=== PATIENT | male | born 1955 | race Caucasian/White ===

== ENCOUNTER 2017-12-22 08:43 | Inpatient (IN) | payer OTHER ==
[~2017-12-22] VITALS: Ht 177.8 cm; Wt 84.0 kg
[~2017-12-22 08:43] MED LIST: ABAC300; CALCA400CH; CEPH500 PO; CRUTCH4 USE; CYCL10 PO; Calcium + Vita1 EACH PO; Crutch1 EACH MISC; HYDACE10B PO; HYDACE5 PO; IBUP800 PO; INDO50 PO; Keflex500 MG PO; METO50ER PO; NAPR500 PO; Naprosyn500 MG PO; Norco 5-325 Ta1 EACH PO; SULTRIDS PO; Ultram50 MG PO; ZESTORETIC 20-121 EA PO; [UNRECOGNIZED DRUG - REMARK]
[2017-12-22] MEDS ORDERED: PRAVASTATIN SOD10 MG PO (08:50)
[2017-12-22 09:57] LABS: BASOPHILS ABSOLUTE AUTO 0.03 K/mm3 (0.00-0.23); BASOPHILS PERCENT AUTO 0 % (0-2); EOSINOPHILS ABSOLUTE AUTO 0.01 K/mm3 (0.00-0.68); EOSINOPHILS PERCENT AUTO 0 % (0-6); Hemoglobin 12.5 g/dL (13.5-17.5); IMMATURE GRAN ABSOLUTE AUTO 0.07 K/mm3 (0.00-0.10); IMMATURE GRAN PERCENT AUTO 0 % (0-1); LYMPHOCYTES ABSOLUTE AUTO 1.12 K/mm3 (0.84-5.20); LYMPHOCYTES PERCENT AUTO 7 % (21-46); MONOCYTES ABSOLUTE AUTO 1.63 K/mm3 (0.16-1.47); MONOCYTES PERCENT AUTO 10 % (4-13); Mean Corpuscular HGB 33.8 pg (26.0-34.0); Mean Corpuscular HGB Conc 35.7 g/dL (31.5-36.5); Mean Corpuscular Volume 95 fL (80-100); Mean Platelet Volume 9.1 fL (9.1-12.4); NEUTROPHILS ABSOLUTE AUTO 13.45 K/mm3 (1.96-9.15); NEUTROPHILS PERCENT AUTO 82 % (41-73); Platelet Count 353 K/mm3 (150-400); RDW Standard Deviation 45.3 fL (35.1-46.3); White Blood Cell Count 16.31 K/mm3 (4.00-11.30)
[2017-12-22 10:22] LABS: Alanine Aminotransfer (ALT/SGP 22 U/L (12-78); Albumin, Blood 2.7 g/dL (3.4-5.0); Albumin/Globulin Ratio 0.7 (0.8-1.8); Alk Phos 69 U/L (50-136); Anion Gap 8 mmol/L (6-16); Aspartate Aminotrans (AST/SGOT 13 U/L (12-37); Bilirubin, Total 0.6 mg/dL (0.1-1.0); Blood Urea Nitrogen 14 mg/dL (8-24); CO2, Blood 27 mmol/L (21-32); Calcium, Blood 9.2 mg/dL (8.5-10.1); Chloride, Blood 101 mmol/L (98-108); Globulin, Blood 3.9 g/dL (2.2-4.0); Glomerular Filtration Rate >60 (60-); Glucose, Blood 123 mg/dL (70-99); Potassium, Blood 2.8 mmol/L (3.5-5.5); Sodium, Blood 136 mmol/L (136-145); Total Protein, Blood 6.6 g/dL (6.4-8.2)
[2017-12-22 12:17] LABS: Body Fluid Crystals POS (NEGATIVE)
[2017-12-22 13:28] LABS: Appearance, Body Fluid Cloudy (Clear); Color, Body Fluid Yellow (None-Yellow)
[2017-12-22 13:59] LABS: Automated BF RBC Count 0.012 M/mm3 (0-0); RBC Count, Body Fluid 12000 /mm3 (0-0)
[2017-12-22 14:03] LABS: Body Fluid WBC Count 74100 /mm3 (0-999)
[2017-12-22 14:04] LABS: Total Cell Count, Body Fluid 100
[2017-12-22 16:56] LABS: BODY FLUID RBC 0.004 (0-0); RBC Count, Synovial Fluid 4000 /mm3 (0-0)
[2017-12-22 17:10] LABS: WBC Count, Synovial Fluid 16863 /mm3 (0-180)
[2017-12-22 17:53] LABS: Body Fluid Crystals POS (NEGATIVE)
[2017-12-22 18:01] LABS: Eos, Synovial Fluid 1 % (0-2); Lymphs, Synovial Fluid 1 % (0-15); Monocytes/Macrophages, Synovia 8 % (0-65); Neutrophils, Synovial Fluid 90 % (0-24)
[2017-12-22 18:02] LABS: Appearance, Synovial Fluid Cloudy (Clear); Color, Synovial Fluid Yellow (None-P Yel)
[2017-12-23 05:57] LABS: BASOPHILS PERCENT AUTO 0 % (0-2); EOSINOPHILS PERCENT AUTO 0 % (0-6); Hematocrit 35.9 % (37.0-53.0); IMMATURE GRAN ABSOLUTE AUTO 0.04 K/mm3 (0.00-0.10); IMMATURE GRAN PERCENT AUTO 0 % (0-1); LYMPHOCYTES ABSOLUTE AUTO 0.62 K/mm3 (0.84-5.20); LYMPHOCYTES PERCENT AUTO 5 % (21-46); MONOCYTES PERCENT AUTO 4 % (4-13); Mean Corpuscular HGB 32.1 pg (26.0-34.0); Mean Corpuscular HGB Conc 33.4 g/dL (31.5-36.5); Mean Corpuscular Volume 96 fL (80-100); Mean Platelet Volume 9.7 fL (9.1-12.4); NEUTROPHILS ABSOLUTE AUTO 10.53 K/mm3 (1.96-9.15); NEUTROPHILS PERCENT AUTO 90 % (41-73); Platelet Count 361 K/mm3 (150-400); RDW Coefficient Variation 13.2 % (11.7-14.2); RDW Standard Deviation 46.5 fL (35.1-46.3); Red Blood Cell Count 3.74 M/mm3 (4.30-5.90); White Blood Cell Count 11.69 K/mm3 (4.00-11.30)
[2017-12-23 06:17] LABS: Alanine Aminotransfer (ALT/SGP 34 U/L (12-78); Albumin, Blood 2.4 g/dL (3.4-5.0); Albumin/Globulin Ratio 0.6 (0.8-1.8); Alk Phos 68 U/L (50-136); Anion Gap 8 mmol/L (6-16); Aspartate Aminotrans (AST/SGOT 28 U/L (12-37); Bilirubin, Total 0.6 mg/dL (0.1-1.0); Blood Urea Nitrogen 15 mg/dL (8-24); Bun/Creatinine Ratio 16.9 (12.0-20.0); CO2, Blood 26 mmol/L (21-32); Calcium, Blood 9.1 mg/dL (8.5-10.1); Chloride, Blood 106 mmol/L (98-108); Creatinine, Blood 0.89 mg/dL (0.60-1.20); Glomerular Filtration Rate >60 (60-); Glucose, Blood 127 mg/dL (70-99); Potassium, Blood 4.3 mmol/L (3.5-5.5); Sodium, Blood 140 mmol/L (136-145); Total Protein, Blood 6.4 g/dL (6.4-8.2)
[2017-12-24 05:24] LABS: BASOPHILS ABSOLUTE AUTO 0.02 K/mm3 (0.00-0.23); BASOPHILS PERCENT AUTO 0 % (0-2); EOSINOPHILS PERCENT AUTO 0 % (0-6); Hematocrit 34.8 % (37.0-53.0); Hemoglobin 11.5 g/dL (13.5-17.5); IMMATURE GRAN ABSOLUTE AUTO 0.05 K/mm3 (0.00-0.10); IMMATURE GRAN PERCENT AUTO 0 % (0-1); LYMPHOCYTES PERCENT AUTO 16 % (21-46); MONOCYTES ABSOLUTE AUTO 0.91 K/mm3 (0.16-1.47); MONOCYTES PERCENT AUTO 7 % (4-13); Mean Corpuscular HGB 31.9 pg (26.0-34.0); Mean Corpuscular Volume 96 fL (80-100); Mean Platelet Volume 10.3 fL (9.1-12.4); NEUTROPHILS ABSOLUTE AUTO 10.32 K/mm3 (1.96-9.15); NEUTROPHILS PERCENT AUTO 77 % (41-73); Platelet Count 305 K/mm3 (150-400); RDW Coefficient Variation 13.2 % (11.7-14.2); RDW Standard Deviation 47.8 fL (35.1-46.3); Red Blood Cell Count 3.61 M/mm3 (4.30-5.90)
[2017-12-24 05:53] LABS: Anion Gap 9 mmol/L (6-16); Blood Urea Nitrogen 22 mg/dL (8-24); CO2, Blood 26 mmol/L (21-32); Calcium, Blood 9.2 mg/dL (8.5-10.1); Chloride, Blood 105 mmol/L (98-108); Glomerular Filtration Rate >60 (60-); Glucose, Blood 96 mg/dL (70-99); Potassium, Blood 3.6 mmol/L (3.5-5.5); Sodium, Blood 140 mmol/L (136-145); Vancomycin, Random 9.8 ug/mL
[2017-12-25 05:12] LABS: BASOPHILS ABSOLUTE AUTO 0.01 K/mm3 (0.00-0.23); BASOPHILS PERCENT AUTO 0 % (0-2); EOSINOPHILS ABSOLUTE AUTO 0.02 K/mm3 (0.00-0.68); EOSINOPHILS PERCENT AUTO 0 % (0-6); Hematocrit 34.5 % (37.0-53.0); Hemoglobin 11.7 g/dL (13.5-17.5); IMMATURE GRAN ABSOLUTE AUTO 0.05 K/mm3 (0.00-0.10); IMMATURE GRAN PERCENT AUTO 0 % (0-1); LYMPHOCYTES ABSOLUTE AUTO 2.73 K/mm3 (0.84-5.20); LYMPHOCYTES PERCENT AUTO 21 % (21-46); MONOCYTES ABSOLUTE AUTO 0.92 K/mm3 (0.16-1.47); MONOCYTES PERCENT AUTO 7 % (4-13); Mean Corpuscular HGB 32.2 pg (26.0-34.0); Mean Corpuscular HGB Conc 33.9 g/dL (31.5-36.5); Mean Corpuscular Volume 95 fL (80-100); Mean Platelet Volume 8.9 fL (9.1-12.4); NEUTROPHILS ABSOLUTE AUTO 9.27 K/mm3 (1.96-9.15); NEUTROPHILS PERCENT AUTO 71 % (41-73); Platelet Count 439 K/mm3 (150-400); RDW Coefficient Variation 13.7 % (11.7-14.2); RDW Standard Deviation 48.4 fL (35.1-46.3); Red Blood Cell Count 3.63 M/mm3 (4.30-5.90)
[2017-12-26 05:47] LABS: Vancomycin, Trough 10.5 ug/mL (5.0-10.0)
[2017-12-26] MEDS ORDERED: COLCHICINE0.6 MG PO (15:57)
[2017-12-26] MEDS ORDERED: LEVFLO500 PO (16:02)
[2017-12-26] MEDS ORDERED: PRED10 PO (16:02)
== END 2017-12-26 16:38 | disposition home or self-care (01) | DRG 550 ==
LOC: ER 08:43 → MEDS 12:30
PROVIDERS: Orthopaedic Surgery; Physician Assistant; Student in an Organized Health Care Education/Training Program
PROC: 3E1U38Z Irrigation of Joints using Irrigating Substance, Percutaneous Approach (ICD-10-PCS; principal; 2017-12-22 17:00)
DX: M00.9 Pyogenic arthritis, unspecified (principal); E78.00 Pure hypercholesterolemia, unspecified; M10.9 Gout, unspecified; M19.012 Primary osteoarthritis, left shoulder; E87.6 Hypokalemia; F20.9 Schizophrenia, unspecified; M25.462 Effusion, left knee
CPT/HCPCS: 20610; 36415; 71046; 73560-LT; 80048; 80053; 80202; 83605; 83880; 85025; 87040; 87070; 87075; 87205; 87591; 89051; 89060; 93970; 96365; 96366; 96375; 97110; 97161; 97530; 99285-25; G8978; G8979; J0171; J1100; J1650; J1956; J2250; J2405; J3010; J3370; J7050; J7120

== ENCOUNTER 2018-04-18 09:00 | Day surgery (SDC) | payer OTHER ==
[~2018-04-18] VITALS: Ht 177.8 cm; Wt 84.5 kg
[~2018-04-18 09:00] MED LIST changes: +COLCHICINE0.6 MG PO; +LEVFLO500 PO; +PRAVASTATIN SOD10 MG PO; +PRED10 PO
== END 2018-04-18 12:40 | disposition home or self-care (01) ==
LOC: ORSCSDS 09:00
PROVIDERS: Internal Medicine Gastroenterology
PROC: 0DJD8ZZ Inspection of Lower Intestinal Tract, Via Natural or Artificial Opening Endoscopic (ICD-10-PCS; principal; 2018-04-18 10:45)
DX: K92.1 Melena (principal)
CPT/HCPCS: J7120

== ENCOUNTER 2018-09-18 09:13 | Emergency (ER) | payer OTHER ==
[~2018-09-18] VITALS: Ht 177.8 cm; Wt 86.2 kg
[2018-09-18] MEDS ORDERED: COLCRYS0.6 MG PO (09:39)
[2018-09-18] MEDS ORDERED: HYDR1TAB94 PO (11:20)
== END 2018-09-18 11:39 | disposition home or self-care (01) ==
LOC: ER 09:13
DX: S53.402A Unspecified sprain of left elbow, initial encounter (principal); E78.00 Pure hypercholesterolemia, unspecified; Z79.899 Other long term (current) drug therapy; W19.XXXA Unspecified fall, initial encounter
CPT/HCPCS: 29105; 73080; 99283-25; A9270-GY

== ENCOUNTER 2019-05-28 17:12 | Emergency (ER) | payer OTHER ==
[~2019-05-28] VITALS: Ht 177.8 cm; Wt 85.7 kg
[~2019-05-28 17:12] MED LIST changes: +COLCRYS0.6 MG PO; +HYDR1TAB94 PO
[2019-05-28 18:05] LABS: BASOPHILS ABSOLUTE AUTO 0.07 K/mm3 (0.00-0.23); BASOPHILS PERCENT AUTO 0 % (0-2); EOSINOPHILS ABSOLUTE AUTO 0.16 K/mm3 (0.00-0.68); EOSINOPHILS PERCENT AUTO 1 % (0-6); Hematocrit 40.4 % (37.0-53.0); Hemoglobin 13.8 g/dL (13.5-17.5); IMMATURE GRAN ABSOLUTE AUTO 0.06 K/mm3 (0.00-0.10); IMMATURE GRAN PERCENT AUTO 0 % (0-1); LYMPHOCYTES PERCENT AUTO 12 % (21-46); MONOCYTES ABSOLUTE AUTO 1.32 K/mm3 (0.16-1.47); MONOCYTES PERCENT AUTO 8 % (4-13); Mean Corpuscular HGB 32.5 pg (26.0-34.0); Mean Corpuscular HGB Conc 34.2 g/dL (31.5-36.5); Mean Corpuscular Volume 95 fL (80-100); Mean Platelet Volume 9.3 fL (9.1-12.4); NEUTROPHILS ABSOLUTE AUTO 13.82 K/mm3 (1.96-9.15); NEUTROPHILS PERCENT AUTO 79 % (41-73); Platelet Count 299 K/mm3 (150-400); RDW Coefficient Variation 13.1 % (11.7-14.2); RDW Standard Deviation 46.1 fL (35.1-46.3); Red Blood Cell Count 4.24 M/mm3 (4.30-5.90); White Blood Cell Count 17.53 K/mm3 (4.00-11.30)
[2019-05-28 18:25] LABS: Albumin, Blood 3.6 g/dL (3.4-5.0); Albumin/Globulin Ratio 1.2 (0.8-1.8); Bilirubin, Total 0.5 mg/dL (0.1-1.0); Bun/Creatinine Ratio 15.7 (12.0-20.0); Calcium, Blood 9.2 mg/dL (8.5-10.1); Creatinine, Blood 1.4 mg/dL (0.60-1.20); Potassium, Blood 4.1 mmol/L (3.5-5.5); Total Protein, Blood 6.6 g/dL (6.4-8.2)
[2019-05-28] MEDS ORDERED: ALLOPURINOL100 M1 PO (20:42)
[2019-05-28] MEDS ORDERED: PRAVASTATIN SOD40 MG PO (20:43)
[2019-05-28] MEDS ORDERED: COLCRYS0.6 M1 PO (20:43)
[2019-05-28] MEDS ORDERED: CLOB.05TO (20:43)
[2019-05-28] MEDS ORDERED: CEPH500 PO (20:57)
[2019-05-28] MEDS ORDERED: Bactrim Ds Tab1 EACH PO (20:57)
== END 2019-05-28 21:44 | disposition home or self-care (01) ==
LOC: ER 17:12
PROVIDERS: Physician Assistant
DX: S60.321A Blister (nonthermal) of right thumb, initial encounter (principal); L03.011 Cellulitis of right finger; F20.9 Schizophrenia, unspecified; E78.5 Hyperlipidemia, unspecified
CPT/HCPCS: 10140; 36415; 80053; 83605; 85025; 99283-25; A9270-GY

== ENCOUNTER 2019-07-31 15:18 | Inpatient (IN) | payer OTHER ==
[~2019-07-31] VITALS: Ht 177.8 cm; Wt 79.9 kg
[~2019-07-31 15:18] MED LIST changes: +ALLOPURINOL100 M1 PO; +Bactrim Ds Tab1 EACH PO; +CLOB.05TO; +COLCRYS0.6 M1 PO; +PRAVASTATIN SOD40 MG PO
[2019-07-31] MEDS ORDERED: Pravachol40 MG PO (15:39)
[2019-07-31] MEDS ORDERED: CLOB.05TO TOP (15:39)
[2019-07-31 16:10] LABS: BASOPHILS ABSOLUTE AUTO 0.06 K/mm3 (0.00-0.23); BASOPHILS PERCENT AUTO 0 % (0-2); EOSINOPHILS ABSOLUTE AUTO 0.17 K/mm3 (0.00-0.68); EOSINOPHILS PERCENT AUTO 1 % (0-6); Hematocrit 40.6 % (37.0-53.0); Hemoglobin 13.4 g/dL (13.5-17.5); IMMATURE GRAN ABSOLUTE AUTO 0.11 K/mm3 (0.00-0.10); IMMATURE GRAN PERCENT AUTO 1 % (0-1); LYMPHOCYTES ABSOLUTE AUTO 2.15 K/mm3 (0.84-5.20); LYMPHOCYTES PERCENT AUTO 13 % (21-46); MONOCYTES ABSOLUTE AUTO 1.89 K/mm3 (0.16-1.47); MONOCYTES PERCENT AUTO 12 % (4-13); Mean Corpuscular HGB 31.5 pg (26.0-34.0); Mean Corpuscular Volume 96 fL (80-100); Mean Platelet Volume 8.9 fL (9.1-12.4); NEUTROPHILS ABSOLUTE AUTO 12.09 K/mm3 (1.96-9.15); NEUTROPHILS PERCENT AUTO 73 % (41-73); Platelet Count 292 K/mm3 (150-400); RDW Coefficient Variation 14.4 % (11.7-14.2); RDW Standard Deviation 50.4 fL (35.1-46.3); Red Blood Cell Count 4.25 M/mm3 (4.30-5.90); White Blood Cell Count 16.47 K/mm3 (4.00-11.30)
[2019-07-31 16:54] LABS: Alanine Aminotransfer (ALT/SGP 17 U/L (12-78); Albumin, Blood 3.4 g/dL (3.4-5.0); Albumin/Globulin Ratio 0.9 (0.8-1.8); Alk Phos 116 U/L (50-136); Anion Gap 5 mmol/L (6-16); Aspartate Aminotrans (AST/SGOT 12 U/L (12-37); Bilirubin, Total 0.7 mg/dL (0.1-1.0); Blood Urea Nitrogen 12 mg/dL (8-24); Bun/Creatinine Ratio 10.9 (12.0-20.0); CO2, Blood 27 mmol/L (21-32); Calcium, Blood 9.2 mg/dL (8.5-10.1); Chloride, Blood 106 mmol/L (98-108); Globulin, Blood 3.7 g/dL (2.2-4.0); Glomerular Filtration Rate >60 (60-); Glucose, Blood 102 mg/dL (70-99); Magnesium, Blood 2.5 mg/dL (1.6-2.4); Potassium, Blood 3.9 mmol/L (3.5-5.5); Sodium, Blood 138 mmol/L (136-145); Total Protein, Blood 7.1 g/dL (6.4-8.2)
[2019-07-31 19:35] LABS: Body Fluid Crystals NEG (NEGATIVE)
[2019-07-31 20:12] LABS: BODY FLUID RBC 0.006 M/mm3 (0-0); RBC Count, Synovial Fluid 6000 /mm3 (0-0)
[2019-07-31 20:16] LABS: Color, Synovial Fluid Yellow (None-P Yel)
[2019-07-31 20:17] LABS: Appearance, Synovial Fluid Cloudy (Clear)
[2019-07-31 20:18] LABS: Protein, Body Fluid >24.0 g/dL; WBC Count, Synovial Fluid 55660 /mm3 (0-180)
[2019-07-31 20:30] LABS: Lymphs, Synovial Fluid 1 % (0-15); Monocytes/Macrophages, Synovia 1 % (0-65); Neutrophils, Synovial Fluid 98 % (0-24)
--- NOTE | 2019-07-31 23:11 | NUR ---
PATIENT IS A NEW ADMIT FROM THE ED. SLOWLY SELF TRANSFER FROM [facility] TO BED WITH SBA. IV VANCO INFUSING ON ADMIT. AXOX 3 AND ON ROOM AIR. PATIENT REPORTS LEFT KNEE IS SWOLLEN AND MINIMAL PAIN. PATIENT ORIENTED TO ROOM AND CALL LIGHT SYSTEM. REPORTS SMOKING CANNIBUS DAILY AND DRINKING BEER MULTIPLE TIMES A WEEK. CEDS. WATCHING TV. CALL LIGHT IN REACH. WARM BLANKETS PROVIDED AND SODA. WILL CONTINUE TO MONITOR.
[2019-07-31 23:12] LABS: C-REACTIVE PROTEIN, EXT RANGE 13.5 mg/dL (0.000-0.300); Magnesium, Blood 2.5 mg/dL (1.6-2.4); Phosphorus, Blood 2.7 mg/dL (2.5-4.9); Uric Acid, Blood 7.4 mg/dL (3.5-7.2)
[2019-08-01 00:02] LABS: U Amphetamine Screen DETECTED; U Barbituate Screen Not Detected; U Benzodiazapine Screen Not Detected; U Buprenorphine Screen Not Detected; U Cannabinoids Screen DETECTED; U Cocaine Screen Not Detected; U Methadone Screen Not Detected; U Methamphetamine Screen Not Detected; U Opiates Screen Not Detected; U Oxycodone Screen Not Detected; U Phencyclidine Screen Not Detected; U Propoxyphene Screen Not Detected
--- NOTE | 2019-08-01 00:08 | NUR ---
URINE TOXIC SCREEN SAMPLE COLLECTED AND SENT TO LAB. NS STARTED AT 125mL/HR. PATIENT SLEEPING AT THIS TIME. CALL LIGHT IN REACH.
--- NOTE | 2019-08-01 03:57 | NUR ---
SHIFT SUMMARY PATIENT HAD NO ACUTE CHANGES OBSERVED. AXOX 3 AND SBA TO BR. USES URINAL AT BEDSIDE. URINE SAMPLE COLLECTED AND SENT TO LAB FOR TOX SCREEN. PIV REMAINS INTACT. NS INFUSING AT 125 mL/HR. REPORTS MINMAL LEFT KNEE PAIN AND LIQUID TYLENOL 650 MG GIVEN PER EMAR. PATIENT BACK TO SLEEP. DENIES SOB AND N/V. ON ROOM AIR AND CEDS. HX OF DAILY CANNABIS USE. REPORTS BEER DRINKING A FEW TIMES PER WEEK ABOUT FORTY EIGHT OUNCES PER EVENT. PATIENT ABLE TO SLEEP MOST OF THE SHIFT. NPO > MIDNIGHT. CALL LIGHT IN REACH. BED IN LOWEST POSITION. WILL CONTINUE TO MONITOR UNTIL DAY SHIFT NURSE ASSUMES CARE.
[2019-08-01 05:38] LABS: BASOPHILS ABSOLUTE AUTO 0.04 K/mm3 (0.00-0.23); BASOPHILS PERCENT AUTO 0 % (0-2); EOSINOPHILS ABSOLUTE AUTO 0.07 K/mm3 (0.00-0.68); EOSINOPHILS PERCENT AUTO 1 % (0-6); Hematocrit 39.5 % (37.0-53.0); Hemoglobin 13.1 g/dL (13.5-17.5); IMMATURE GRAN ABSOLUTE AUTO 0.07 K/mm3 (0.00-0.10); IMMATURE GRAN PERCENT AUTO 1 % (0-1); LYMPHOCYTES PERCENT AUTO 14 % (21-46); MONOCYTES ABSOLUTE AUTO 1.81 K/mm3 (0.16-1.47); MONOCYTES PERCENT AUTO 12 % (4-13); Mean Corpuscular HGB 31.5 pg (26.0-34.0); Mean Corpuscular HGB Conc 33.2 g/dL (31.5-36.5); Mean Corpuscular Volume 95 fL (80-100); Mean Platelet Volume 9.1 fL (9.1-12.4); NEUTROPHILS ABSOLUTE AUTO 10.58 K/mm3 (1.96-9.15); NEUTROPHILS PERCENT AUTO 73 % (41-73); Platelet Count 269 K/mm3 (150-400); RDW Coefficient Variation 14.4 % (11.7-14.2); RDW Standard Deviation 49.6 fL (35.1-46.3); Red Blood Cell Count 4.16 M/mm3 (4.30-5.90); White Blood Cell Count 14.57 K/mm3 (4.00-11.30)
[2019-08-01 05:52] LABS: International Normalized Ratio 1.02; Prothrombin Time Results 10.9 Sec (9.7-11.5)
[2019-08-01 05:56] LABS: Alanine Aminotransfer (ALT/SGP 17 U/L (12-78); Albumin, Blood 3.1 g/dL (3.4-5.0); Albumin/Globulin Ratio 0.9 (0.8-1.8); Alk Phos 102 U/L (50-136); Anion Gap 3 mmol/L (6-16); Aspartate Aminotrans (AST/SGOT 15 U/L (12-37); Bilirubin, Total 0.6 mg/dL (0.1-1.0); Blood Urea Nitrogen 11 mg/dL (8-24); Bun/Creatinine Ratio 11.7 (12.0-20.0); CO2, Blood 26 mmol/L (21-32); Calcium, Blood 9.1 mg/dL (8.5-10.1); Chloride, Blood 109 mmol/L (98-108); Creatinine, Blood 0.94 mg/dL (0.60-1.20); Globulin, Blood 3.6 g/dL (2.2-4.0); Glomerular Filtration Rate >60 (60-); Glucose, Blood 106 mg/dL (70-99); Potassium, Blood 3.9 mmol/L (3.5-5.5); Sodium, Blood 138 mmol/L (136-145); Total Protein, Blood 6.7 g/dL (6.4-8.2)
--- NOTE | 2019-08-01 15:32 | NUR ---
PT TO DAY SURGERY VIA KATHY
--- NOTE | 2019-08-01 15:53 | NUR ---
PT TRANSFERED TO [facility] FROM MEDICAL FLOOR VIA GURNEY. History, Chart, Medications and Allergies reviewed before start of procedure. Lungs clear T/O to Auscultation. Patient confirms NPO status and agrees with scheduled surgery.
--- NOTE | 2019-08-01 18:02 | NUR ---
PT TO BE TRANSFERED TO ROOM 231 ON SURGICAL FLOOR POST PROCEDURE. LANETTE GAYTAN GIVEN REPORT AT THIS TIME.
--- NOTE | 2019-08-01 19:31 | NUR ---
ARRIVED FROM PACU VIA GURNEY, AWAKE, CONFUSED CONVERSATION, DENIES ANY PAIN, PT DOESN'T ANSWER WHEN ASKED IF HAVING NUMBNESS OR TINGLING, HEMOVAC INTACT W/ SANGUINOUS DRAINAGE NOTED, L KNEE W/ PAOLA WRAP, C/D/I, CALL LIGHT WITHIN REACH, WILL REPORT TO NOC RN.
--- NOTE | 2019-08-02 06:20 | NUR ---
POD 1 S/P I&D OF LEFT KNEE. DRESSING CDI, HEMOVAC DRNG SS DRNG. PAIN MGD W/PO PAIN MEDS W/REP RELIEF. PT DENIED CHANGES IN SENSATION. PT PLEASANT AND COOPERATIVE, IS HAVING HALLUCINATIONS IN ROOM. PT USING CALL LIGHT FOR ASSISTANCE, BED ALARM ON FOR SAFETY. WILL CONT TO MONITOR UNTIL REP GIVEN TO ONCOMING RN.
[2019-08-02 09:12] LABS: BASOPHILS ABSOLUTE AUTO 0.02 K/mm3 (0.00-0.23); BASOPHILS PERCENT AUTO 0 % (0-2); EOSINOPHILS PERCENT AUTO 0 % (0-6); Hematocrit 35.6 % (37.0-53.0); Hemoglobin 11.8 g/dL (13.5-17.5); IMMATURE GRAN ABSOLUTE AUTO 0.06 K/mm3 (0.00-0.10); IMMATURE GRAN PERCENT AUTO 0 % (0-1); LYMPHOCYTES ABSOLUTE AUTO 1.43 K/mm3 (0.84-5.20); LYMPHOCYTES PERCENT AUTO 9 % (21-46); MONOCYTES ABSOLUTE AUTO 1.32 K/mm3 (0.16-1.47); MONOCYTES PERCENT AUTO 8 % (4-13); Mean Corpuscular HGB 31.4 pg (26.0-34.0); Mean Corpuscular HGB Conc 33.1 g/dL (31.5-36.5); Mean Corpuscular Volume 95 fL (80-100); Mean Platelet Volume 9.1 fL (9.1-12.4); NEUTROPHILS ABSOLUTE AUTO 13.84 K/mm3 (1.96-9.15); NEUTROPHILS PERCENT AUTO 83 % (41-73); Platelet Count 279 K/mm3 (150-400); RDW Coefficient Variation 13.8 % (11.7-14.2); RDW Standard Deviation 48.3 fL (35.1-46.3); Red Blood Cell Count 3.76 M/mm3 (4.30-5.90); White Blood Cell Count 16.67 K/mm3 (4.00-11.30)
[2019-08-02 09:33] LABS: Alanine Aminotransfer (ALT/SGP 16 U/L (12-78); Albumin, Blood 2.7 g/dL (3.4-5.0); Albumin/Globulin Ratio 0.7 (0.8-1.8); Alk Phos 88 U/L (50-136); Anion Gap 7 mmol/L (6-16); Aspartate Aminotrans (AST/SGOT 11 U/L (12-37); Bilirubin, Total 0.2 mg/dL (0.1-1.0); Blood Urea Nitrogen 15 mg/dL (8-24); CO2, Blood 23 mmol/L (21-32); Calcium, Blood 8.8 mg/dL (8.5-10.1); Chloride, Blood 108 mmol/L (98-108); Creatinine, Blood 0.94 mg/dL (0.60-1.20); Globulin, Blood 3.7 g/dL (2.2-4.0); Glomerular Filtration Rate >60 (60-); Glucose, Blood 181 mg/dL (70-99); Sodium, Blood 138 mmol/L (136-145); Total Protein, Blood 6.4 g/dL (6.4-8.2); Vancomycin, Trough 8.8 ug/mL (5.0-10.0)
--- NOTE | 2019-08-02 09:41 | NUR ---
[id number] PT TALKATIVE TELLS ME HE REALLY LIKES PAIN SHOTS AND NEEDS ONE BECAUSE HE IS GOING TO [facility]. PT TALKS TO SELF AND SOME OF THINGS HE TALLS ME HE HEARD ON TV ARE ABOUT HIM
--- NOTE | 2019-08-02 18:21 | NUR ---
SUMMARY PT COOPERATIVE , REPORTS PAIN IS CONTROLLED TO KNEE. PT TALKING TO SELF WHEN NO ONE PRESENT IN ROOM AND CONVERSATION WITH ME IS NOT ALWAYS RELEVANT TO QUESTIONS BEING ASKED AND SITUATION. PT DENIES ANY HALLUCINATIONS
--- NOTE | 2019-08-02 20:20 | NUR ---
IV PRESENT AT TIME OF ASSESSMENT TO Mahendra LEE
[2019-08-03 04:11] LABS: BASOPHILS ABSOLUTE AUTO 0.06 K/mm3 (0.00-0.23); BASOPHILS PERCENT AUTO 1 % (0-2); EOSINOPHILS ABSOLUTE AUTO 0.05 K/mm3 (0.00-0.68); EOSINOPHILS PERCENT AUTO 0 % (0-6); Hematocrit 35.3 % (37.0-53.0); Hemoglobin 11.4 g/dL (13.5-17.5); IMMATURE GRAN ABSOLUTE AUTO 0.04 K/mm3 (0.00-0.10); IMMATURE GRAN PERCENT AUTO 0 % (0-1); LYMPHOCYTES ABSOLUTE AUTO 2.97 K/mm3 (0.84-5.20); LYMPHOCYTES PERCENT AUTO 25 % (21-46); MONOCYTES ABSOLUTE AUTO 1.05 K/mm3 (0.16-1.47); MONOCYTES PERCENT AUTO 9 % (4-13); Mean Corpuscular HGB 31.2 pg (26.0-34.0); Mean Corpuscular HGB Conc 32.3 g/dL (31.5-36.5); Mean Corpuscular Volume 97 fL (80-100); Mean Platelet Volume 9.2 fL (9.1-12.4); NEUTROPHILS ABSOLUTE AUTO 7.87 K/mm3 (1.96-9.15); NEUTROPHILS PERCENT AUTO 65 % (41-73); Platelet Count 265 K/mm3 (150-400); RDW Coefficient Variation 14.1 % (11.7-14.2); RDW Standard Deviation 50.6 fL (35.1-46.3); Red Blood Cell Count 3.65 M/mm3 (4.30-5.90); White Blood Cell Count 12.04 K/mm3 (4.00-11.30)
[2019-08-03 04:35] LABS: Magnesium, Blood 2.2 mg/dL (1.6-2.4)
[2019-08-03 04:44] LABS: Albumin, Blood 2.6 g/dL (3.4-5.0); Anion Gap 6 mmol/L (6-16); Blood Urea Nitrogen 16 mg/dL (8-24); Bun/Creatinine Ratio 17.1 (12.0-20.0); CO2, Blood 24 mmol/L (21-32); Calcium, Blood 8.7 mg/dL (8.5-10.1); Chloride, Blood 110 mmol/L (98-108); Creatinine, Blood 0.93 mg/dL (0.60-1.20); Glomerular Filtration Rate >60 (60-); Glucose, Blood 124 mg/dL (70-99); Phosphorus, Blood 2.9 mg/dL (2.5-4.9); Potassium, Blood 3.9 mmol/L (3.5-5.5); Sodium, Blood 140 mmol/L (136-145)
--- NOTE | 2019-08-03 05:16 | NUR ---
SHIFT SUMMARY: ELAN IS A&O. VSS, NO ACUTE EVENTS OVERNIGHT. HEMOVAC PATENT. TOLERATING PO INTAKE WELL. REPORTS PAIN WELL CONTROLLED WITH USE OF ORAL MEDICATION. IV TO L AC PATENT, FLUIDS INFUSING. HE USES THE URINAL INDEPENDENTLY, GOOD URINE OUTPUT. HE USES THE CALL LIGHT APPROPRIATELY. HE IS LYING IN BED WITH HIS CALL LIGHT IN REACH. WILL REPORT TO DAY SHIFT RN.
[2019-08-03 09:22] LABS: Vancomycin, Trough 17.7 ug/mL (5.0-10.0)
--- NOTE | 2019-08-03 17:04 | NUR ---
SHIFT SUMMARY PT A&OX4, VSS, POD2 I&D L KNEE, WBAT, HEMOVAC REMOVED, DRESSING CHANGED TODAY. PAIN MANAGED PER EMAR. VERNON PO, DENIES N&V. AMB W/FWW TO BRP. VOIDING WELL. WILL REPORT TO ONCOMING NOC RN.
--- NOTE | 2019-08-04 04:08 | NUR ---
IV INFILTRATED PT REQUESTING IV TO BE LEFT OUT AT THIS TIME UNTIL MORNING ABX ARE DUE. PT ENCOURAGED TO ALLOW IV ACCESS FOR IV ABX SOON POSSIBLE. PT REQUEST ACKNOWLEDGED AT THIS TIME.
--- NOTE | 2019-08-04 04:35 | NUR ---
SHIFT SUMMARY POD#3. AAOX4/ANXIOUS AT TIMES. DISCOMFORT CONTROLLED WITH 10MG ROXICODONE + 600MG MOTRIN X1 THIS SHIFT. NO NAUSEA/EMESIS. DRESSING TO LEFT KNEE C/D/I. PPP, DENIES N/T ALL EXTREMITIES, MOVES TOES WELL BLE. PT RESTED WELL T/O NIGHT. GOOD PO INTAKE + OUT PUT. PT UP SBA WITH FWW IN ROOM, TOLERATES WELL. IV INFILTRATED THIS AM DURING VANCOMYCIN INFUSION. PT REQUESTING TO HAVE IV STARTED IN AM UPON AWAKENING, SEE NURSES NOTE. NO ACUTE CHANGES OVER NIGHT. PT CURRENTLY RESTING IN BED WITH EYES CLOSED + CALL LIGHT IN REACH.
[2019-08-04] MEDS ORDERED: HYDR1TAB94 PO (12:08)
[2019-08-04] MEDS ORDERED: COLCRYS0.6 M1 PO (12:58)
[2019-08-04] MEDS ORDERED: NAPR500EC PO (12:59)
--- NOTE | 2019-08-04 14:30 | NUR ---
DISCHARGE SUMMARY PT LEFT THE FLOOR VIA WC WITH ALL PERSONAL POSSESSIONS INCLUDING DRESSING CHANGE SUPPLIES AND DC PACKET AND 1 NARC SCRIPT; SCRIPTS FAXED TO [facility]. DC INSTRUCTIONS PROVIDED. PT REP UNDERSTANDING THOSE INSTRUCTIONS INCLUDING DRESSING CHANGES DAILY, FU WITH PCP IN 2-4 AND SURGEON IN 1-2 WKS. IV DC'D.
== END 2019-08-04 15:27 | disposition home or self-care (01) | DRG 489 ==
LOC: ER 15:18 → SURS 22:08 → MEDS 22:08 → SURS 08-01 18:20
PROVIDERS: Emergency Medicine; Internal Medicine; Internal Medicine Gastroenterology; Nurse Practitioner Acute Care; Orthopaedic Surgery; Pharmacist; ADMIT Internal Medicine
PROC: 0SBD4ZZ Excision of Left Knee Joint, Percutaneous Endoscopic Approach (ICD-10-PCS; principal; 2019-08-01 16:15)
DX: M11.262 Other chondrocalcinosis, left knee (principal); F20.9 Schizophrenia, unspecified; E78.5 Hyperlipidemia, unspecified; E78.00 Pure hypercholesterolemia, unspecified; F17.210 Nicotine dependence, cigarettes, uncomplicated; F12.10 Cannabis abuse, uncomplicated
CPT/HCPCS: 20611; 36415; 71045; 73562-LT; 80053; 80069; 80202; 83605; 83735; 84100; 84145; 84157; 84550; 85025; 85610; 85651; 86140; 87040; 87070; 87075; 87205; 89051; 89060; 93005; 93010; 93306; 96365-59; 96367-59; 97110; 97116; 97162; 99285-25; J0171; J0696; J1100; J1650; J2250; J2405; J2704; J3010; J3370; J7030; J7040; J7050; J7120